=== PATIENT | female | born 1985 | race Caucasian/White ===

== ENCOUNTER 2023-10-15 19:10 | Emergency (ER) | payer OTHER ==
[2023-10-15] MEDS: Ondansetron 4 MG Tab.DIS PO ONE (19:39)
[2023-10-15] MEDS: Ibuprofen 600 MG Tab PO ONE (20:33)
[2023-10-15 22:04] VITALS: BP 128/75; PULSE 94
== END 2023-10-15 20:37 | disposition home or self-care (01) ==
LOC: KA.ED 19:10 → SUPCPDRO 19:10 → KA.ED 20:37
DX: S16.1XXA Strain of muscle, fascia and tendon at neck level, initial encounter (principal); S13.4XXA Sprain of ligaments of cervical spine, initial encounter; Z79.51 Long term (current) use of inhaled steroids; Z79.899 Other long term (current) drug therapy; V49.49XA Driver injured in collision with other motor vehicles in traffic accident, initial encounter; Y93.89 Activity, other specified
CPT/HCPCS: 70450; 72125; 99284; A9270-GY

== ENCOUNTER 2024-03-12 22:58 | Emergency (ER) | payer OTHER ==
[2024-03-12] MEDS: Ketorolac 30 MG/ML SDV IM ONE (23:04)
[2024-03-12] MEDS: Acetaminophen 500 MG Tab PO ONE (23:05)
[2024-03-12] MEDS: Methocarbamol 500 MG Tab PO SCH (23:35)
[2024-03-12] MEDS: Ketorolac 30 MG/ML SDV ONE (23:36)
[2024-03-12] MEDS: Acetaminophen 500 MG Tab ONE (23:37)
[2024-03-12] MEDS: Ondansetron 4 MG Tab.DIS PO ONE (23:37)
[2024-03-12] MEDS: Ondansetron 4 MG Tab.DIS ONE (23:37)
[2024-03-12 23:39] VITALS: BP 134/86; PULSE 84
== END 2024-03-13 00:22 | disposition home or self-care (01) ==
LOC: KA.ED 22:58
DX: R51.9 Headache, unspecified (principal); F17.210 Nicotine dependence, cigarettes, uncomplicated; E66.9 Obesity, unspecified; Z79.899 Other long term (current) drug therapy
CPT/HCPCS: 96372; 99283; A9270-GY; J1885